=== PATIENT | male | born 1965 | race Caucasian/White ===

== ENCOUNTER 2018-12-03 09:30 | Emergency (ER) | payer SELFPAY ==
[2018-12-03] MEDS ORDERED: Ondansetron INJ* 2 MG/ML VIAL IV ONE (09:34)
[2018-12-03] MEDS ORDERED: Morphine 4 MG/ML VIAL (1 ml) 4 MG/ML VIAL IV ONE (09:34)
[2018-12-03] MEDS ORDERED: KETAMINE HCL* 50 MG/ML 10 ML VIAL IV ONE ×2 (10:32→11:12)
--- NOTE | 2018-12-03 10:34 | ED ---
Progress - Progress Note Progress Note: I supervised the PA and performed a history and physical exam. Pt is a 53 y/o male who presents to the ED c/o right shoulder pain. He dislocated his shoulder yesterday, and has a hx of recurrent shoulder dislocations. Appearance: Well appearing, mild pain distress Skin: warm, dry, reflects adequate perfusion Head/face: normal Eyes: EOMI, VANESSA ENT: mucous membranes moist Neck: supple, non-tender Respiratory: CTA, breath sounds present Cardiovascular: RRR, pulses symmetrical Abdomen: non-tender, soft Bowel Sounds: present Musculoskeletal: ROM limited, obvious deformity and tenderness to right shoulder Neuro: normal, sensory motor intact, A&Ox3 Plan: Perform a closed reduction under ketamine. Procedural sedation: The patient was formally consented and a timeout was performed. The patient was placed on full cardiopulmonary monitoring including end-tidal CO2. He was placed on oxygen. Initially 80 mg of ketamine intravenously was administered. This failed to produce adequate analgesia/anesthesia and so 50 additional milligrams were given for a total of 130 mg. This produced adequate analgesia/ anesthesia for close reduction procedure to be for preformed by the physician curriculum assistant. Patient was quickly reduced and placed in a sling. Total sedation time is 3 minutes. The patient recovered uneventfully and there were no complications. Course/Dx - Diagnoses Provider Diagnoses: Posterior dislocation of right shoulder joint Discharge - Sign-Out/Discharge Documenting (check all that apply): Patient Departure - Discharge Patient Received Moderate/Deep Sedation with Procedure: Yes - Discharge Plan Condition: Improved Disposition: HOME Patient Education Materials: Shoulder Dislocation (ED), Moderate Sedation (ED) Referrals: No Primary Care Phys,NOPCP [Primary Care Provider] - Additional Instructions: Keep the shoulder in a shoulder sling until you follow up with orthopedics - Billing Disposition and Condition Condition: IMPROVED Disposition: Home - Attestation Statements Document Initiated by Scribe: Yes Documenting Scribe: Brii Holliday Provider For Whom Scribe is Documenting (Include Credential): Jeffrey Parra MD Scribe Attestation: Brii Robison, scribed for Jeffrey Parra MD on 12/03/18 at 1525. Scribe Documentation Reviewed: Yes Provider Attestation: The documentation as recorded by the Brii saini accurately reflects the service I personally performed and the decisions made by me, Jeffrey Parra MD Status of Scribe Document: Viewed
--- NOTE | 2018-12-03 11:54 | UC ---
Upper Extremity HPI - HPI Summary HPI Summary: Patient is a 53-year-old male with a history of persistent shoulder dislocations , although he is unsure if they tend to be anterior or posterior, presenting to the ED with another dislocation which occurred this morning. He states the last dislocation was 3 days ago at [facility] in [place] which was reduced with a scapular maneuver. He states he was not given any pain control at that time. He awoke this morning, and felt it "pop" out of place again. He is endorsing 10/10 pain, worse with movement, better with internal rotation. He is requesting pain medication on arrival. He has endorsing tingling into the fingertips. Denies any color temperature changes. - History of Current Complaint Chief Complaint: Raul Stated Complaint: POSS RIGHT SHOULDER DISLOCATION PER EMS Time Seen by Provider: 12/03/18 09:33 Hx Obtained From: Patient ?: No Onset/Duration: Sudden Onset Severity Initially: Mild Severity Currently: Mild Pain Intensity: 7 Pain Scale Used: 0-10 Numeric Location Of Pain: Is Discrete @ - R shoulder Character: Aching Aggravating Factor(s): Lifting, Flexion, Extension, Internal/External Rotation - internal rotation helps Alleviating Factor(s): Nothing Related History: Dominant Hand Right - Risk Factors Non-Orthopedic Risk Factor: Negative DVT Risk Factors: Negative Septic Arthritis Risk Factor: Negative Compartment Syndrome Risk Factors: Pain, Paresthesias - Allergies/Home Medications Allergies/Adverse Reactions: Allergies Allergy/AdvReac Type Severity Reaction Status Date / Time Penicillins Allergy Unknown Verified 12/03/18 09:34 Reaction Details PMH/Surg Hx/FS Hx/Imm Hx Previously Healthy: Yes - Family History Known Family History: Positive: None - Social History Occupation: Employed Part-time Lives: Alone Alcohol Use: None Substance Use Type: None Smoking Status (MU): Never Smoked Tobacco Review of Systems All Other Systems Reviewed And Are Negative: Yes Constitutional: Positive: Negative Skin: Positive: Negative Respiratory: Positive: Negative Cardiovascular: Positive: Negative Motor: Positive: Decreased ROM Neurovascular: Positive: Decreased Sensation Musculoskeletal: Positive: Arthralgia - right shoulder Neurological: Positive: Negative Is Patient Immunocompromised?: Yes Physical Exam Triage Information Reviewed: Yes Appearance: Well-Appearing, Well-Nourished Vital Signs: Initial Vital Signs Temp 98.0 F 12/03/18 09:30 Pulse 78 12/03/18 09:30 Resp 16 12/03/18 09:30 BP 146/80 12/03/18 09:30 Pulse Ox 98 12/03/18 09:30 Vital Signs Reviewed: Yes Eye Exam: Normal Eyes: Positive: Conjunctiva Clear Neck exam: Normal Neck: Positive: Supple, No Lymphadenopathy Respiratory Exam: Normal Respiratory: Positive: Chest non-tender, Lungs clear Cardiovascular Exam: Normal Cardiovascular: Positive: RRR Musculoskeletal Exam: Other - right shoulder Neurological Exam: Normal Psychological Exam: Normal Psychological: Positive: Normal Response To Family Skin Exam: Normal Upper Extremity Course/Dx - Course Course Of Treatment: During the course of treatment, the patient is noted to have what appears to be an anterior right shoulder dislocation. 10 cc without epi given into the right IM shoulder joint. This with good effect. Patient was also given 4 mg IM morphine with good effect. Attempted at scapular reduction and maneuver, but patient states he is unable to stand upwards as he was previously (per his last reduction) and is requesting sedation. Massaged the shoulder and attempted a exorotation maneuver. Again, patient states he is unable to tolerate. I have asked Dr. Parra to provide conscious sedation. (see separate note) After sedation is provided - traction with rotation of the R shoulder with audible click. Immediate shoulder immobilizer applied. Post reduction xrays show reduced shoulder. - Differential Dx/Diagnosis Provider Diagnosis: Posterior dislocation of right shoulder joint Discharge - Sign-Out/Discharge Documenting (check all that apply): Patient Departure Patient Received Moderate/Deep Sedation with Procedure: Yes - Discharge Plan Condition: Improved Disposition: HOME Patient Education Materials: Shoulder Dislocation (ED), Moderate Sedation (ED) Referrals: No Primary Care Phys,NOPCP [Primary Care Provider] - Additional Instructions: Keep the shoulder in a shoulder sling until you follow up with orthopedics - Billing Disposition and Condition Condition: IMPROVED Disposition: Home
[2018-12-03 14:24] VITALS: BP 129/79
== END 2018-12-03 14:11 | disposition home or self-care (01) ==
LOC: ED 09:30
DX: S43.004A Unspecified dislocation of right shoulder joint, initial encounter (principal); X58.XXXA Exposure to other specified factors, initial encounter; Y92.9 Unspecified place or not applicable; Z88.0 Allergy status to penicillin
CPT/HCPCS: 96374; 96375; 96376; 99285; J2270; J2405